=== PATIENT | female | born 1980 | race Two or more races ===

== ENCOUNTER 2024-10-21 06:45 | Day surgery (SDC) | payer OTHER ==
[2024-10-15 13:24] VITALS: BP 104/78
[~2024-10-21] VITALS: Ht 157.5 cm; Wt 83.9 kg
[~2024-10-21 06:45] MED LIST: CLONAZEPAM1 MG PO
[2024-10-21] MEDS ORDERED: TRAM1TAB98 PO (09:46)
[2024-10-21] MEDS ORDERED: SUGAMMADEX SODIUM 200 MG/2 ML VIAL IV ONE (10:15)
[2024-10-21] MEDS ORDERED: MORPHINE SULFATE 4 MG/ML VIAL IV ONE (10:40)
== END 2024-10-21 11:45 | disposition home or self-care (01) ==
LOC: CIR.AMB 06:45
PROVIDERS: ATTEND Obstetrics & Gynecology Gynecology
DX: D06.9 Carcinoma in situ of cervix, unspecified (principal); Z88.6 Allergy status to analgesic agent

== ENCOUNTER 2025-01-13 11:00 | Inpatient (IN) | payer OTHER ==
[~2025-01-13] VITALS: Ht 160 cm; Wt 88.5 kg
[~2025-01-13 11:00] MED LIST changes: +TRAM1TAB98 PO
[2025-01-13] MEDS ORDERED: PROZAC20 MG PO (12:04)
[2025-01-13] MEDS ORDERED: RESTORIL30 M1 PO (12:04)
[2025-01-13 12:30] VITALS: BP 109/71
[2025-01-20] MEDS ORDERED: CEFAZOLIN SODIUM 1,000 MG VIAL IV ONE (13:15)
[2025-01-20] MEDS ORDERED: POVIDONE-IODINE 118 ML BOTT TOP ONE (13:15)
[2025-01-20] MEDS ORDERED: LIDOCAINE HCL 1% 20 ML VIAL IJ ONE (13:30)
[2025-01-20] MEDS ORDERED: BUPIVACAINE HCL 30 ML VIAL IJ ONE (13:30)
[2025-01-20] MEDS ORDERED: ONDANSETRON HCL 2 MG/ML VIAL IV PRN (15:15)
[2025-01-20] MEDS ORDERED: RINGERS SOLUTION,LACTATED 1,000 ML IV SCH (15:30)
[2025-01-20 17:54] LABS: BASO % 0.2 % (0.1-1.2); EOS # 0.01 (0.04-0.54); EOS % 0.1 % (0.7-7.0); LYMPH # 0.68 (1.18-3.74); LYMPH % 5.2 % (19.3-53.1); MEAN PLATELET VOLUME 10.90 fl (9.4-12.4); MONO # 0.44 (0.24-0.82); MONO % 3.3 % (4.7-12.5); NEUT # 11.99 (1.56-6.13); NEUT % 90.8 % (34.0-71.1); RED CELL DISTRIBUTION WIDTH 11.9 % (11.6-14.4)
[2025-01-20] MEDS ORDERED: CEFAZOLIN SODIUM 1,000 MG VIAL IV SCH (18:00)
[2025-01-20] MEDS ORDERED: TEMAZEPAM 15 MG CAPSULE PO SCH (21:00)
[2025-01-21 00:23] VITALS: BP 92/66
[2025-01-21] MEDS ORDERED: TRAMADOL HCL 50 MG TABLET PO PRN (06:15)
[2025-01-21] MEDS ORDERED: TRAM1TAB98 PO (07:06)
[2025-01-21 08:23] VITALS: BP 98/62
[2025-01-21] MEDS ORDERED: FLUOXETINE HCL 20 MG CAPSULE PO SCH (09:00)
[2025-01-21] MEDS ORDERED: ENOXAPARIN SODIUM 40 MG/0.4 ML SYRINGE SUBCUTANEO SCH (09:00)
[2025-01-21] MEDS ORDERED: CLONAZEPAM 1 MG TABLET PO SCH (09:00)
[2025-01-21] MEDS ORDERED: CLONAZEPAM 0.5 MG TABLET PO ONE (09:45)
== END 2025-01-21 09:53 | disposition home or self-care (01) | DRG 741 ==
LOC: SURH 01-20 07:00 → OB/GYN 01-20 10:00 → O/R 01-20 10:00 → SURH 01-20 11:00 → OB/GYN 01-20 15:24
PROVIDERS: ADMIT Obstetrics & Gynecology Gynecology; ATTEND Obstetrics & Gynecology Gynecology
PROC: 0UT74ZZ Resection of Bilateral Fallopian Tubes, Percutaneous Endoscopic Approach (ICD-10-PCS; 2025-01-20)
PROC: 0UT94ZZ Resection of Uterus, Percutaneous Endoscopic Approach (ICD-10-PCS; principal; 2025-01-20 07:00)
DX: D06.7 Carcinoma in situ of other parts of cervix (principal); N80.03 Adenomyosis of the uterus; D25.1 Intramural leiomyoma of uterus